=== PATIENT | male | born 1950 | race Caucasian/White ===

== ENCOUNTER 2017-11-29 10:01 | Emergency (ER) | payer BC ==
[2017-11-29 10:10] VITALS: BP 146/77
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
== END 2017-11-29 12:51 | disposition home or self-care (01) ==
LOC: UCEAST 10:01
DX: J20.9 Acute bronchitis, unspecified (principal); J32.9 Chronic sinusitis, unspecified; I51.9 Heart disease, unspecified; Q89.01 Asplenia (congenital); Z95.1 Presence of aortocoronary bypass graft; Z90.81 Acquired absence of spleen; Z88.1 Allergy status to other antibiotic agents; Z87.891 Personal history of nicotine dependence
CPT/HCPCS: 99212; G0463

== ENCOUNTER 2019-12-22 14:14 | Emergency (ER) | payer BC ==
[2019-12-22 15:01] LABS: ABS Basophils 0.1 10^3/ul (0-0.2); ABS Eosinophils 0.1 10^3/ul (0-0.6); ABS Lymphocytes 3.1 10^3/ul (1.0-4.8); ABS Monocytes 0.4 10^3/ul (0-0.8); Eosinophil % 0.9 %; Hematocrit 44 % (42-52); Hemoglobin 14.6 g/dL (14.0-18.0); Lymphocyte % 40.6 %; Mean Corpuscular HGB Conc 34 g/dL (31-36); Mean Corpuscular Hemoglobin 28 pg (27-31); Mean Corpuscular Volume 83 fL (80-94); Mean Platelet Volume 9.3 fL (7.4-10.4); Nucleated Red Blood Cells % 0.4; Platelet Count 276 10^3/uL (150-450); Red Blood Count 5.29 10^6 /uL (4.18-5.48); Red Cell Distribution Width 14 % (10-15); White Blood Count 7.7 10^3/uL (3.5-10.8)
[2019-12-22 15:24] LABS: Albumin 4.8 g/dL (3.2-5.2); Albumin/Globulin Ratio 1.5 (1-3); BUN/Creatinine Ratio 21.8 (8-20); Calcium 9.9 mg/dL (8.6-10.3); EGFR African American 89.2 (>60); EGFR Non-African American 73.7 (>60); Globulin 3.1 g/dL (2-4); Potassium 4.3 mmol/L (3.5-5.0); Total Bilirubin 0.5 mg/dL (0.2-1.0); Total Protein 7.9 g/dL (6.4-8.9)
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
[2019-12-22 18:37] VITALS: BP 157/95
== END 2019-12-22 18:36 | disposition home or self-care (01) ==
LOC: ED 14:14
DX: R06.00 Dyspnea, unspecified (principal); R07.9 Chest pain, unspecified; Q24.9 Congenital malformation of heart, unspecified; R53.83 Other fatigue; R06.02 Shortness of breath; R42 Dizziness and giddiness; Z72.0 Tobacco use; Z95.4 Presence of other heart-valve replacement
CPT/HCPCS: 36415; 71046; 80053; 84484; 85025; 85379; 85610; 93005; 99283

== ENCOUNTER 2024-04-16 07:22 | Inpatient (IN) ==
[2024-04-16 08:41] LABS: INR 1.11 (0.83-1.13)
[2024-04-16 08:42] LABS: ABS Lymphocytes 3.5 10^3/uL (1.0-4.8); ABS Monocytes 0.3 10^3/uL (0.0-1.1); ABS Neutrophils 6.9 10^3/uL (1.5-7.6); ABS Nucleated RBC 0.01 10^3/ul; Hemoglobin 14.2 g/dL (13.2-16.3); Lymphocyte % 32.6 %; Mean Corpuscular Hemoglobin 27.4 pg (27-33); Mean Corpuscular Hgb Conc 33.9 g/dL (31-36); Mean Corpuscular Volume 80.9 fL (80-97); Mean Platelet Volume 9.8 fL (7.5-11.2); Nucleated Red Blood Cells % 0.1 %/100WBC (0.0-0.8); Platelet Count 320 10^3/uL (150-450); Red Blood Count 5.19 10^6/uL (4.06-5.63); White Blood Count 10.7 10^3/uL (3.6-10.2)
[2024-04-16] MEDS: Ondansetron 4 mg VIAL 2 MG/ML 2 ml VIAL IV ONE (09:01)
[2024-04-16] MEDS: Acetaminophen IV 1 GM/100ML 1,000 MG/100 ML BAG IV ONE (09:01)
[2024-04-16 09:18] LABS: Albumin/Globulin Ratio 1.4 (1-3); C Reactive Protein 248.14 mg/L (<8.01); Calcium 9.1 mg/dL (8.6-10.3); Creatinine, Serum 1.12 mg/dL (0.67-1.17); Globulin 2.9 g/dL (2-4); Potassium 4.3 mmol/L (3.5-5.0); Total Bilirubin 1.2 mg/dL (0.2-1.0); Total Protein 6.9 g/dL (6.4-8.9); eGFR CKD-EPI 70.2 (>60)
[2024-04-16] MEDS: Lactated Ringers 1000 ml BAG 1,000 ML IV ONE ×2 (09:40→11:43)
[2024-04-16 10:10] LABS: High Sensitivity Troponin 1 Hr 15 pg/mL (<20)
[2024-04-16] MEDS: Iodixanol (CONTRAST) 320 MG/ML 100 ML SDV IV ONE (10:49)
[2024-04-16] MEDS: cefTRIAXone 1 gm/50 mL D5W 1 GM/50 ML BAG IV ONE (10:51)
[2024-04-16] MEDS: Azithromycin 500 mg/250 ml NS 500 MG/250 ML BAG IVPB ONE (11:43)
[2024-04-16] MEDS: NS 0.9% 1000 ml BAG 1,000 ML IV SCH (16:06)
[2024-04-16] MEDS: metroNIDAZOLE IV 500 MG/100ML 500 MG/100 ML BAG IVPB SCH (16:18)
[2024-04-17 08:09] LABS: Hematocrit 36.4 % (38-53); Hemoglobin 12.2 g/dL (13.2-16.3); Mean Corpuscular Hemoglobin 27.3 pg (27-33); Mean Corpuscular Hgb Conc 33.7 g/dL (31-36); Mean Corpuscular Volume 80.9 fL (80-97); Mean Platelet Volume 9.9 fL (7.5-11.2); Platelet Count 221 10^3/uL (150-450); Red Blood Count 4.49 10^6/uL (4.06-5.63); Red Cell Distribution Width 14.7 % (12-17); White Blood Count 8.3 10^3/uL (3.6-10.2)
[2024-04-17 08:58] LABS: Albumin 3.1 g/dL (3.2-5.2); Albumin/Globulin Ratio 1.3 (1-3); Calcium 8.3 mg/dL (8.6-10.3); Creatinine, Serum 1.08 mg/dL (0.67-1.17); Globulin 2.3 g/dL (2-4); Magnesium 1.8 mg/dL (1.9-2.7); Phosphorus 2.8 mg/dL (2.5-5.0); Potassium 4.6 mmol/L (3.5-5.0); Total Protein 5.4 g/dL (6.4-8.9); eGFR CKD-EPI 73.4 (>60)
[2024-04-17] MEDS: Azithromycin 500 mg/250 ml NS 500 MG/250 ML BAG IVPB SCH (09:38)
[2024-04-17] MEDS: cefTRIAXone 1 gm/50 mL D5W 1 GM/50 ML BAG IV SCH (11:03)
[2024-04-17] MEDS: Magnesium Sulfate 2 gm BAG 2 GM/50 ML BAG IVPB ONE (11:44)
[2024-04-18 06:17] LABS: ABS Basophils 0.1 10^3/uL (0.0-0.1); ABS Monocytes 0.3 10^3/uL (0.0-1.1); ABS Neutrophils 4.5 10^3/uL (1.5-7.6); ABS Nucleated RBC 0.02 10^3/ul; Hemoglobin 11.1 g/dL (13.2-16.3); Lymphocyte % 37.8 %; Mean Corpuscular Hemoglobin 26.9 pg (27-33); Mean Corpuscular Hgb Conc 33.6 g/dL (31-36); Mean Corpuscular Volume 79.8 fL (80-97); Mean Platelet Volume 10.4 fL (7.5-11.2); Nucleated Red Blood Cells % 0.2 %/100WBC (0.0-0.8); Platelet Count 165 10^3/uL (150-450); Red Blood Count 4.13 10^6/uL (4.06-5.63); Red Cell Distribution Width 14.7 % (12-17)
[2024-04-18 07:37] LABS: Calcium 7.6 mg/dL (8.6-10.3); Creatinine, Serum 0.91 mg/dL (0.67-1.17); Magnesium 1.9 mg/dL (1.9-2.7); eGFR CKD-EPI 90.1 (>60)
[2024-04-18 09:55] VITALS: BP 120/67
[2024-04-18 12:32] LABS: RBC Parasite Smear No Parasites Seen (No Parasite)
[2024-04-18] MEDS: metroNIDAZOLE IV 500 MG/100ML 500 MG/100 ML BAG IVPB SCH (16:34)
[2024-04-19 19:58] LABS: Hepatitis B Surface Antigen Nonreactive (Nonreactive)
[2024-04-19 20:05] LABS: Hepatitis A Ab IgM Negative (Negative)
[2024-04-19 20:09] LABS: Hepatitis B Surface Ab Not Immune (Immune)
[2024-04-19 20:10] LABS: Hepatitis C Antibody Negative (Negative)
[2024-04-19 20:26] LABS: Anaplasma phagocytophilum Positive (Negative); B. miyamotoi PCR, B Negative (Negative); Babesia divergens/MO-1 Negative (Negative); Babesia ducani Negative (Negative); Ehrlichia chaffeensis Negative (Negative); Ehrlichia ewingii/canis Negative (Negative); Ehrlichia muris eauclairensis Negative (Negative)
[2024-04-20 11:43] LABS: Cytomegalovirus IgG Antibody Positive (Negative)
[2024-04-20 15:57] LABS: IgG Immunoblot Negative (Negative); IgM Immunoblot Negative (Negative)
== END 2024-04-18 19:29 | disposition home or self-care (01) | DRG 868 ==
LOC: ED 07:22 → EDHOLD 13:50 → SUATTDRO 13:50 → SSU 14:32
PROVIDERS: ADMIT Internal Medicine; ATTEND Internal Medicine